=== PATIENT | female | born 1995 | race Caucasian/White ===

== ENCOUNTER 2016-12-18 05:31 | Inpatient (IN) | payer OTHER ==
[~2016-12-18] VITALS: Ht 170.2 cm; Wt 105.0 kg
[2016-12-18 06:37] VITALS: Ht 170.2 cm; Wt 105.0 kg
[2016-12-18 06:38] VITALS: BP 114/65; PULSE 68; RESP 18
[2016-12-18] MEDS: LACTATED RINGER'S 1,000 ML IV SCH ×3 (06:44→23:30)
[2016-12-18 06:52] LABS: ADD SCAN DIFF NO
[2016-12-18] MEDS ORDERED: OXYTOCIN 30 UNITS/LR 500 ML IV PRN (07:00)
[2016-12-18] MEDS ORDERED: MISOPROSTOL 200 MCG TAB PR PRN (07:00)
[2016-12-18] MEDS ORDERED: EPHEDrine SULFATE 50 MG/5 ML SYG ONE (07:00)
[2016-12-18] MEDS ORDERED: METHYLERGONOVINE 0.2 MG INJ IM PRN (07:00)
[2016-12-18] MEDS ORDERED: CARBOPROST 250 MCG INJ IM PRN (07:00)
[2016-12-18] MEDS ORDERED: CEFAZOLIN 2 GM/50 ML (PMX) 50 ML IV SCH (07:00)
[2016-12-18 07:07] LABS: BASOPHILS % 0.4 % (0.0-2.0); EOSINOPHILS % 0.4 % (0.0-7.0); HEMATOCRIT 33.9 % (37.0-47.0); HEMOGLOBIN 10.8 g/dl (12.0-16.0); LYMPHOCYTES % 33.1 % (15.0-51.0); MEAN CORPUSCULAR HGB CONC 31.9 g/dl (32.0-37.0); MEAN CORPUSCULAR VOLUME 84.8 fl (82.0-101.0); MEAN PLATELET VOLUME 11.3 fl (7.4-10.4); MONOCYTE # 0.8 10^3/ul (0.3-0.9); NEUTROPHIL # 5.1 10^3/ul (1.6-7.5); NEUTROPHILS % 56.8 % (39.0-77.0); PLATELET COUNT 192 10^3/UL (140-415); RED CELL DISTRIBUTION WIDTH 15.6 % (11.5-14.5)
[2016-12-18 07:14] LABS: INR 0.9; PROTIME 12.1 Sec (12.2-14.2); PT RATIO 0.9
[2016-12-18 07:16] LABS: PARTIAL THROMBOPLASTIN TIME 28.2 Sec (25.0-35.0)
[2016-12-18] MEDS ORDERED: morphine SULFATE/PF (10 MG/10 ML) INJ ONE (08:23)
[2016-12-18] MEDS ORDERED: FENTAnyl 50 MCG/ML VIAL ONE (08:23)
[2016-12-18] MEDS ORDERED: PHENYLephrine (100 MCG/ML) 5ML SYG ONE (08:35)
--- NOTE | 2016-12-18 08:43 | HP ---
Date/Time of Note Date/Time of Note DATE: 12/18/16 TIME: 08:14 OB - History Hx of Present Free Text/Dictation This is a 21 years old female admitted to [facility] at 39 weeks and 2 day of with a history of previous requesting voluntary sterilization bilateral tubal ligation at the time of repeat section. This patient has been under the care of [facility] and her course was not complicated with gestational diabetes or -induced hypertension or any other medical or surgical condition Past history Menarche at age 11 history of 1 1 previous with section on March 19, 2015 Allergies: Denies allergy to any known medication Social habit: Denies any smoking or drinking Family history unremarkable Review of systems within normal Physical examination 5 feet 6 inches 230 pounds blood pressure 115/62 pulse 60 respiration 20 temperature 98.2 Head ears nose and throat negative Neck supple no thyromegaly Lungs clear to P&A Heart normal changes of rhythm Abdomen: Fundal height 37 cm from symphysis pubis to the height of the fund heart rate category 1 Pelvic examination: Deferred Extremities no edema no varicosities Impression: Intrauterine 39 weeks plus history one previous requesting bilateral tubal ligation at the time of her section. Patient has been informed regarding the complication of the surgery including but not limited to bowel and bladder injury infection wound hematoma and hemorrhage she is willing to proceed with the operation. Estimated Due Date: Dec 18, 2016 : 2 Para: 1 Care: Good Care Ultrasounds: Normal mid trimester US Obstetrical Complications: None Medical Complications: None Past Family/Social History * Past Medical, Surgical, Family and Obstetric Histories reviewed from chart. Rubella: immune RPR/VDRL: Negative GBS Status: Negative HBsAG: Negative OB Admission Exam Vital Signs Vital Signs Vital Signs Date Time Temp Pulse Resp B/P Pulse Ox O2 Delivery O2 Flow Rate FiO2 12/18/16 06:38 98.4 68 18 114/65 Room Air Physical Exam HEENT: WNL Heart: Rhythm Normal Lungs: Clear, Equal Abdomen: WNL Extremities: Normal Reflexes: Normal Cervical Dilatation: None Effacement: 0% Heart Rate: 130's Accelerations: Accelerations Present Decelerations: No Decelerations Contractions on Admission: 6-10 Minutes Apart Last 72 hours Lab Results CBC & BMP 12/18/16 06:39 JAVON RAYMOND MD Dec 18, 2016 08:25
[2016-12-18] MEDS ORDERED: ONDANSETRON 4 MG INJ ONE (08:52)
[2016-12-18] MEDS ORDERED: DIPHENHYDRAMINE 50 MG INJ ONE (08:52)
[2016-12-18] MEDS ORDERED: DEXAMETHASONE 4 MG/ML 1 ML INJ ONE (08:52)
[2016-12-18] MEDS ORDERED: HYDROmorphONE 1 MG/ML SYG IV PRN ×2 (10:00)
[2016-12-18] MEDS ORDERED: NALOXONE (0.4 MG/ML) INJ IV PRN (10:00)
[2016-12-18] MEDS ORDERED: ZOLPIDEM 5 MG TAB PO PRN (10:00)
[2016-12-18] MEDS ORDERED: DIPHENHYDRAMINE 50 MG INJ IV PRN (10:00)
[2016-12-18] MEDS ORDERED: PROCHLORPERAZINE 10 MG INJ IV PRN (10:00)
[2016-12-18] MEDS ORDERED: ONDANSETRON 4 MG INJ IV PRN (10:00)
--- NOTE | 2016-12-18 10:26 | OPR ---
DATE OF OPERATION: 12/18/2016 PREOPERATIVE DIAGNOSES: 1. Intrauterine at term at 39 weeks and 2 days. 2. History of previous section. 3. Request for voluntary sterilization bilateral tubal ligation. POSTOPERATIVE DIAGNOSES: 1. Intrauterine at 39 weeks and 2 days. 2. History of previous section. 3. Request for voluntary sterilization bilateral tubal ligation. OPERATION PERFORMED: Repeat transverse low cervical section, bilateral tubal ligation. SURGEON: Javon Mcguire MD SUPERVISOR [employer]TO[employer]ET[employer] LABORATORY: Yaneli Melendrez MD ANESTHESIA: Spinal. ANESTHESIOLOGIST: Juan Miguel Garcia DO FINDINGS: Live baby girl with the 9 and 9. DETAILS OF THE PROCEDURE: Under satisfactory spinal anesthesia, the patient was prepped and draped and placed in supine position, tilted to the left. Pfannenstiel incision was made, carried through the subcutaneous tissue. Bleeders brought under control with electrocautery. Fascia incised to the length of the incision. Rectus muscle divided in midline. Peritoneum exposed, entered through a t ransverse incision. Exploration of abdomen gravid uterus with normal appearing tubes and ovaries. Bladder flap was developed. Transverse incision was made in the lower segment of the uterus. Amnio tic sac ruptured. Clear amniotic fluid noted. Live baby girl was delivered from LOT position. David al oropharyngeal suction was performed. Cord was clamped after stopped pulsation. Baby handed to [facility] for immediate attention. Patient received 20 units of Pitocin. Placenta delivered manually intact. Uterine cavity cleaned with wet sponge and drainage established. Uterus closed i n 2 layers using Monocryl #1 in continuous fashion. Peritoneal cavity irrigated with warm saline. Sponge, needle and instrument reported to be correct. Bilateral tubal ligation performed by identifying the ampullar and the fimbria of the right fallopia n tube which was grasped by a [place]. Suture material used #0 plain catgut was reinforced with the same suture material, that portion of the tube including the portion of the ampullar and complete f imbria was excised. The cut end of the tube was cauterized and the specimen submitted for the patho logy. The same procedure performed for the opposite side. Peritoneal cavity irrigated with copious amount of sterile water. Sponge, needle and instrument reported to be correct. Abdominal peritone um closed with 2-0 chromic catgut continuously. Rectus muscle approximated with a few interrupted 2 -0 chromic catgut. Fascia closed with #1 PDS in a continuous fashion. Subcutaneous tissue irrigate d with warm saline and approximated with 2-0 chromic catgut. Skin closed with elliott. Estimated b lood loss 600 to 700 mL. Urine bag contained 200 mL of clear urine. Patient tolerated procedure we ll, transferred to recovery room in a good condition. Dictated By: JAVON MCGUIRE MD HF/NTS Conf#: [id number] DID#: [id number] CC: YANELI MELENDREZ MD;*EndCC*
[2016-12-18] MEDS: KETOROLAC 30 MG INJ IV PRN ×2 (11:09→23:22)
[2016-12-18] MEDS: OXYTOCIN 30 UNITS/LR 500 ML IV SCH ×2 (11:12→12:32)
[2016-12-18 12:00] VITALS: BP 115/61; PULSE 56; RESP 18
[2016-12-18 15:52] VITALS: BP 107/58; PULSE 59; RESP 18
[2016-12-18 20:00] VITALS: BP 98/53; PULSE 57; RESP 18
[2016-12-19] VITALS (7 sets, daily range): BP systolic 99–114; BP diastolic 51–66; PULSE 54–81; RESP 18–19
[2016-12-19] MEDS: LACTATED RINGER'S 1,000 ML IV SCH (06:33)
[2016-12-19 07:25] LABS: ADD SCAN DIFF NO
[2016-12-19 07:38] LABS: BASOPHILS % 0.1 % (0.0-2.0); EOSINOPHILS % 0.3 % (0.0-7.0); HEMATOCRIT 28.7 % (37.0-47.0); HEMOGLOBIN 9.8 g/dl (12.0-16.0); LYMPHOCYTES # 3.1 10^3/ul (0.8-2.9); LYMPHOCYTES % 28.4 % (15.0-51.0); MEAN CORPUSCULAR HEMOGLOBIN 28.2 pg (29.0-33.0); MEAN CORPUSCULAR VOLUME 82.9 fl (82.0-101.0); MEAN PLATELET VOLUME 9.5 fl (7.4-10.4); MONOCYTES % 9.1 % (0.0-11.0); NEUTROPHIL # 6.9 10^3/ul (1.6-7.5); NEUTROPHILS % 62.1 % (39.0-77.0); PLATELET COUNT 163 10^3/UL (140-440); RED BLOOD COUNT 3.46 10^6/ul (4.20-5.40); RED CELL DISTRIBUTION WIDTH 16.7 % (11.5-14.5); WHITE BLOOD COUNT 11.1 10^3/ul (4.8-10.8)
[2016-12-19] MEDS: KETOROLAC 30 MG INJ IV PRN (08:42)
[2016-12-19] MEDS ORDERED: OXYTOCIN 30 UNITS/LR 500 ML IV SCH (10:26)
[2016-12-19] MEDS ORDERED: METHYLERGONOVINE 0.2 MG INJ IM PRN (10:30)
[2016-12-19] MEDS ORDERED: LANOLIN 7 GM TUBE TOP PRN (10:30)
[2016-12-19] MEDS ORDERED: CARBOPROST 250 MCG INJ IM PRN (10:30)
[2016-12-19] MEDS ORDERED: OXYCODONE/ACETAMINOPHEN (5/325) TAB PO PRN (10:30)
[2016-12-19] MEDS ORDERED: OXYTOCIN 30 UNITS/LR 500 ML IV PRN (10:30)
[2016-12-19] MEDS ORDERED: MISOPROSTOL 200 MCG TAB PR PRN (10:30)
[2016-12-19] MEDS ORDERED: CEFAZOLIN 1 GM/50 ML (PMX) 50 ML IVPB SCH (10:30)
--- NOTE | 2016-12-19 11:05 | PN ---
Date/Time of Note Date/Time of Note DATE: 12/19/16 TIME: 11:04 OB Subjective Subjective Subjective Post day 1, Afebrile, vital sign stable, abdomen soft, incision dry, bowel sounds present, extremity normal, ambulation recommended Laboratory Tests Test 12/19/16 07:00 Basophils # 0.010^3/ul Basophils % 0.1% Blood Morphology Comment Eosinophils # 0.010^3/ul Eosinophils % 0.3% Hematocrit 28.7% Hemoglobin 9.8g/dl Lymphocytes # 3.110^3/ul Lymphocytes % 28.4% Mean Corpuscular Hemoglobin 28.2pg Mean Corpuscular Hemoglobin Concent 34.0g/dl Mean Corpuscular Volume 82.9fl Mean Platelet Volume 9.5fl Monocytes # 1.010^3/ul Monocytes % 9.1% Neutrophils # 6.910^3/ul Neutrophils % 62.1% Nucleated Red Blood Cells # 0.010^3/ul Nucleated Red Blood Cells % 0.0/100WBC Platelet Count 55560^3/UL Red Blood Count 3.4610^6/ul Red Cell Distribution Width 16.7% White Blood Count 11.110^3/ul Current Medications Medications (Trade) Dose Ordered Sig/Becky Route PRN Reason Start Time Stop Time Status Last Admin Dose Admin Lactated Ringer's 1,000 ml @ 125 mls/hr Q8H IV 12/18/16 06:32 12/19/16 10:28 DC 12/19/16 06:33 Cefazolin Sodium/ Dextrose 50 ml @ 100 mls/hr ONCE IV 12/18/16 07:00 12/19/16 10:28 DC Oxytocin/Lactated Ringer's 500 ml @ 125 mls/hr ONCE IV 12/18/16 07:00 12/19/16 10:28 DC 12/18/16 12:32 Oxytocin/Lactated Ringer's 500 ml @ 0 mls/hr ONCE PRN IV For Hemorrhage Management 12/18/16 07:00 12/19/16 10:28 DC 12/18/16 10:18 Methylergonovine Maleate (Methergine) 0.2 mg ONCE PRN IM VAGINAL BLEEDING 12/18/16 07:00 12/19/16 10:28 DC Carboprost Tromethamine (Hemabate) 250 mcg ONCE PRN IM VAGINAL BLEEDING 12/18/16 07:00 12/19/16 10:28 DC Misoprostol (Cytotec) 1,000 mcg ONCE PRN CA VAGINAL BLEEDING 12/18/16 07:00 12/19/16 10:28 DC Morphine Sulfate (Duramorph) 10 mg STK-MED ONCE .ROUTE 12/18/16 08:23 12/18/16 08:24 DC Fentanyl (Sublimaze) 100 mcg STK-MED ONCE .ROUTE 12/18/16 08:23 12/18/16 08:24 DC Phenylephrine HCl (Ryley-Synephrine Inj Syg) 500 mcg STK-MED ONCE .ROUTE 12/18/16 08:35 12/18/16 08:36 DC Ondansetron HCl (Zofran Inj) 4 mg STK-MED ONCE .ROUTE 12/18/16 08:52 12/18/16 08:53 DC Dexamethasone (Decadron) 4 mg STK-MED ONCE .ROUTE 12/18/16 08:52 12/18/16 08:53 DC Diphenhydramine HCl (Benadryl) 50 mg STK-MED ONCE .ROUTE 12/18/16 08:52 12/18/16 08:53 DC Naloxone HCl (Narcan) 0.1 mg Q2M PRN IV FOR RESP RATE 8 OR LESS 12/18/16 10:00 12/19/16 10:28 DC Ketorolac Tromethamine (Toradol) 30 mg Q6H PRN IV PAIN 12/18/16 10:00 12/19/16 10:28 DC 12/19/16 08:42 Hydromorphone HCl (Dilaudid) 0.2 mg Q3H PRN IV PAIN LEVEL 1-5 12/18/16 10:00 12/19/16 10:28 DC Hydromorphone HCl (Dilaudid) 0.4 mg Q3H PRN IV PAIN LEVEL 6-10 12/18/16 10:00 12/19/16 10:28 DC Diphenhydramine HCl (Benadryl) 25 mg Q6H PRN IV ITCHING 12/18/16 10:00 12/19/16 10:28 DC Ondansetron HCl (Zofran Inj) 4 mg Q6H PRN IV NAUSEA AND/OR VOMITING 12/18/16 10:00 12/19/16 10:28 DC Prochlorperazine (Compazine Inj) 10 mg ONCE PRN IV NAUSEA AND/OR VOMITING 12/18/16 10:00 12/19/16 10:28 DC Zolpidem Tartrate (Ambien) 5 mg HS MAY REPEAT X 1 PRN PO INSOMNIA 12/18/16 10:00 12/19/16 10:28 DC Acetaminophen/ Codeine Phosphate (Tylenol No.3) 1 tab Q4H PRN PO PAIN LEVEL 4-6 12/19/16 10:30 Acetaminophen/ Codeine Phosphate (Tylenol No.3) 2 tab Q4H PRN PO PAIN LEVEL 7-10 12/19/16 10:30 Oxycodone/ Acetaminophen (Percocet (5/ 325)) 1 tab Q4H PRN PO PAIN LEVEL 4-6 12/19/16 10:30 Oxycodone/ Acetaminophen (Percocet (5/ 325)) 2 tab Q4H PRN PO PAIN LEVEL 7-10 12/19/16 10:30 Ibuprofen (Motrin) 600 mg Q6 PO 12/19/16 12:00 Simethicone (Mylicon) 160 mg Q8H PRN PO DISTENSION/GAS/BLOATING 12/19/16 10:30 Senna/Docusate Sodium (Senokot-S) 1 tab BID PO 12/19/16 21:00 Lanolin (Ldg-S-Qclxee) 1 applic BEDSIDE MEDICATION PRN TOP BEDSIDE FOR SOLITARIO TO NIPPLES 12/19/16 10:30 Diphtheria/ Tetanus/Acell Pertussis 0.5 ml 0.5 ml ONCE ONCE IM* 12/22/16 09:00 12/22/16 09:01 Oxytocin/Lactated Ringer's 500 ml @ 0 mls/hr ONCE PRN IV For Hemorrhage Management 12/19/16 10:30 Methylergonovine Maleate (Methergine) 0.2 mg ONCE PRN IM VAGINAL BLEEDING 12/19/16 10:30 Carboprost Tromethamine (Hemabate) 250 mcg ONCE PRN IM VAGINAL BLEEDING 12/19/16 10:30 Misoprostol 1000 mcg 1,000 mcg ONCE PRN CA VAGINAL BLEEDING 12/19/16 10:30 Cefazolin Sodium 50 ml @ 100 mls/hr ONCE IVPB 12/19/16 10:30 2/11/17 10:59 Oxytocin/Lactated Ringer's 500 ml @ 125 mls/hr Q4H IV 12/19/16 10:26 JAVON RAYMOND MD Dec 19, 2016 11:04
[2016-12-19] MEDS: ACETAMINOPHEN/CODEINE #3 TAB PO PRN ×2 (11:07→15:39)
[2016-12-19] MEDS: IBUPROFEN 600 MG TAB PO SCH ×2 (11:52→18:13)
[2016-12-19] MEDS: SENNA/DOCUSATE NA (8.6MG/50MG) TAB PO SCH (21:50)
[2016-12-19] MEDS: OXYCODONE/ACETAMINOPHEN (5/325) TAB PO PRN (21:51)
[2016-12-20] MEDS: ACETAMINOPHEN/CODEINE #3 TAB PO PRN (04:14)
[2016-12-20 04:50] VITALS: BP 96/54; PULSE 57; RESP 19
[2016-12-20] MEDS: IBUPROFEN 600 MG TAB PO SCH ×5 (06:41→23:52)
[2016-12-20 07:29] LABS: BASOPHILS % 0.4 % (0.0-2.0); EOSINOPHILS # 0.1 10^3/ul (0.0-0.5); EOSINOPHILS % 0.7 % (0.0-7.0); HEMATOCRIT 28.6 % (37.0-47.0); HEMOGLOBIN 9.7 g/dl (12.0-16.0); LYMPHOCYTES # 2.8 10^3/ul (0.8-2.9); LYMPHOCYTES % 30.8 % (15.0-51.0); MEAN CORPUSCULAR HEMOGLOBIN 28.1 pg (29.0-33.0); MEAN CORPUSCULAR HGB CONC 33.9 g/dl (32.0-37.0); MEAN PLATELET VOLUME 9.6 fl (7.4-10.4); MONOCYTE # 0.8 10^3/ul (0.3-0.9); MONOCYTES % 9.2 % (0.0-11.0); NEUTROPHIL # 5.3 10^3/ul (1.6-7.5); NEUTROPHILS % 58.9 % (39.0-77.0); PLATELET COUNT 166 10^3/UL (140-440); RED BLOOD COUNT 3.44 10^6/ul (4.20-5.40)
[2016-12-20 07:39] LABS: CONDITION 1; LH ANALYZER COMMENTS 1
[2016-12-20 08:00] VITALS: BP 101/50; PULSE 63; RESP 18
[2016-12-20] MEDS: SENNA/DOCUSATE NA (8.6MG/50MG) TAB PO SCH ×2 (09:45→21:29)
[2016-12-20] MEDS: OXYCODONE/ACETAMINOPHEN (5/325) TAB PO PRN ×2 (15:57→22:44)
[2016-12-20 16:00] VITALS: BP 116/65; PULSE 62; RESP 18
[2016-12-20] MEDS: NA PHOSPHATE/BIPHOS 133 ML ENEMA PR ONE ×2 (17:31→21:29)
[2016-12-20 20:00] VITALS: BP 104/67; PULSE 57; RESP 18
[2016-12-21 04:00] VITALS: BP 107/57; PULSE 59; RESP 18
[2016-12-21] MEDS: IBUPROFEN 600 MG TAB PO SCH ×3 (05:40→17:28)
[2016-12-21 08:40] VITALS: BP 100/55; PULSE 58; RESP 20
[2016-12-21] MEDS: SENNA/DOCUSATE NA (8.6MG/50MG) TAB PO SCH (09:00)
[2016-12-21] MEDS: ACETAMINOPHEN/CODEINE #3 TAB PO PRN (09:50)
[2016-12-21] MEDS ORDERED: DIPHTH/TET/ACEL PERTUSS (ADULT) 0.5 ML VIAL IM* ONE (12:00)
--- NOTE | 2016-12-21 14:23 | PD.PPDC ---
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
--- NOTE | 2016-12-21 14:25 | DS ---
Date/Time of Note Date/Time of Note DATE: 12/21/16 TIME: 14:24 Obstetrical Discharge Record Final Diagnosis Final Diagnosis: Term delivered Section Section: Repeat Condition on Discharge Physical Assessment Last Vitals: Post repeat day 3 abdomen soft incision dry bowel sounds present patient had normal bowel movement scrimmage is normal recommended appointment to the clinic in 4 days to DC her elliott. Voiding: Yes Bowel Movement: Yes Breast: Filling Fundus: Firm Calf Tenderness: Yes Patient Condition: Good JAVON RAYMOND MD Dec 21, 2016 14:25
[2016-12-22] MEDS ORDERED: DIPHTH/TET/ACEL PERTUSS (ADULT) 0.5 ML VIAL IM* ONE (09:00)
== END 2016-12-21 18:35 | disposition home or self-care (01) | DRG 766 ==
LOC: L-D 05:31 → PP1 11:54
PROVIDERS: ADMIT Obstetrics & Gynecology; ATTEND Obstetrics & Gynecology
PROC: 0UL70ZZ Occlusion of Bilateral Fallopian Tubes, Open Approach (ICD-10-PCS; 2016-12-18)
PROC: 10D00Z1 Extraction of Products of Conception, Low, Open Approach (ICD-10-PCS; principal; 2016-12-18 07:30)
DX: O34.211 Maternal care for low transverse scar from previous cesarean delivery (principal); Z30.2 Encounter for sterilization; Z3A.39 39 weeks gestation of pregnancy; Z37.0 Single live birth
CPT/HCPCS: 85025; 85610; 85730; 86592; 86850; 86900; 86901; 88302; 90715; 99464; J0690; J1100; J1200; J1885; J2274; J2370; J2405; J2590; J3010; J7120